=== PATIENT | female | born 1980 | race Caucasian/White ===

== ENCOUNTER → 2017-03-03 | Outpatient (CLI) | payer OTHER | LOC: FIMAGING 14:12 | PROVIDERS: ATTEND Obstetrics & Gynecology | DX: D24.2 Benign neoplasm of left breast (principal) | CPT/HCPCS: G0204 ==

== ENCOUNTER 2018-09-04 23:44 | Emergency (ER) | payer OTHER | END 2018-09-05 00:47 | disposition home or self-care (01) ==